=== PATIENT | female | born 1935 | race Caucasian/White ===

== ENCOUNTER → 2018-11-22 | Outpatient (CLI) | payer MEDICARE ==
[~2018-11-22] MED LIST: BUSP5 PO; CELE200 PO; FOLI400 PO; LEVE500 PO; LEVSOD88 PO; LISI5 PO; MELA3 PO; MIRT15 PO; SIMV10 PO; Valium5 MG PO; Vibramycin100 MG PO
== END | disposition home or self-care (01) ==
LOC: LAB SHORT 15:40 → LAB 15:40
DX: R41.0 Disorientation, unspecified (principal)
CPT/HCPCS: 87086